=== PATIENT | male | born 1930 | race Caucasian/White ===

== ENCOUNTER 2018-12-10 00:22 | Inpatient (IN) | payer MEDICARE ==
[~2018-12-10] VITALS: Ht 177.8 cm; Wt 72.0 kg
[~2018-12-10 00:22] MED LIST: ADULT ASPIRIN R81 MG PO; ALPRAZOLAM0.25 MG PO; ATENOLOL25 MG OR; ATENOLOL50 MG OR; CIPRO500 MG OR; DIABETA2.5 MG OR; DONEPEZIL5 MG PO; FLOMAX0.4 MG OR; GLYBURIDE2.5 MG; ISOSORB MONO120 MG; ISOSORB MONO20 MG PO; LISINOPRIL2.5 MG OR; LISINOPRIL5 MG PO; OMEPRAZOLE10 MG PO; PROAIR HFA108 MCG/AC PO; SIMVASTATIN20 MG PO; SM ASPIRIN81 M1 OR; TAMSULOSIN0.4 MG PO
[2018-12-10] MEDS ORDERED: ZOLOFT50 MG PO (01:13)
[2018-12-10] MEDS ORDERED: NAMENDA10 MG PO (01:21)
[2018-12-10] MEDS ORDERED: ISOSORB MONO30 MG PO (01:22)
[2018-12-10] MEDS ORDERED: TRAMADOL HCL50 MG PO (01:23)
[2018-12-10] MEDS ORDERED: CETIRIZINE10 MG PO (01:23)
[2018-12-10] MEDS ORDERED: FOLIC ACID1 MG PO (01:24)
[2018-12-10] MEDS ORDERED: NASACORT A55 MCG/ACT (01:25)
[2018-12-10 01:29] LABS: HEMATOCRIT 37.8 % (39.0-50.0); HEMOGLOBIN 11.8 g/dl (14.0-18.0); IMMATURE GRANULOCYTES 0.4 % (0.0-5.0); MEAN CELL VOLUME 88.1 fL CALC (80.0-100.0); MEAN CORPUSCULAR HGB 27.5 pG CALC (26.0-32.0); MEAN CORPUSCULAR HGB CONC 31.2 g/L CALC (32.0-36.0); NEUT# 6.83 thou/uL (1.82-7.42); RED BLOOD COUNT 4.29 mill/uL (4.70-6.10)
[2018-12-10 01:35] LABS: ALBUMIN 3.9 g/dL (3.2-5.0); ALKALINE PHOSPHATASE 100 u/l (38-126); AMYLASE 76 u/l (30-110); ANION GAP 14 (6-22 (CALC)); BILIRUBIN, TOTAL 0.7 mg/dL (0.0-1.4); BUN 22 mg/dL (8-23); BUN/CREATININE RATIO 16 (12-20 (CALC)); CARBON DIOXIDE 25 mmol/l (22-30); CHLORIDE 106 mmol/l (95-108); CREATININE 1.4 mg/dL (0.7-1.3); GFR 48 ML/MIN (>=60 (CALC)); GFR FOR AFR.AMER. 58 ML/MIN (>=60 (CALC)); LIPASE 328 u/l (23-300); POTASSIUM 4.5 mmol/l (3.5-5.1); PROTHROMBIN TIME 10.7 SECONDS (9.0-12.5); SGOT/AST 18 u/l (19-48); SODIUM 141 mmol/l (137-146); TOTAL PROTEIN 6.8 g/dL (6.3-8.2)
[2018-12-10 01:47] LABS: MYOGLOBIN 35 ng/mL (0 - 121)
[2018-12-10 03:00] LABS: URINE BILIRUBIN - DIPSTICK NEGATIVE (NEGATIVE); URINE BLOOD DIPSTICK SMALL (NEGATIVE); URINE COLOR YELLOW; URINE GLUCOSE - DIPSTICK NEGATIVE (NEGATIVE); URINE KETONE TRACE mg/dL (NEGATIVE); URINE NITRITE - DIPSTICK NEGATIVE (Negative); URINE PH 5.5 (4.5-8.0); URINE PROTEIN - DIPSTICK TRACE mg/dL (NEG-TRACE); URINE SPECIFIC GRAVITY >=1.030; URINE UROBILINOGEN - DIPSTICK 0.2 E.U./dL (0.2)
[2018-12-10 03:04] LABS: URINE LEUK ESTERASE SMALL (NEGATIVE)
[2018-12-10 03:06] LABS: URINE BACTERIA FEW hpf; URINE MUCUS MODERATE hpf (NONE-FEW); URINE SQUAMOUS EPITHELIAL CELL FEW EPI/hpf (0-FEW); URINE WBC 50-100 WBC/hpf (0-5)
[2018-12-10 04:00] VITALS: BP 165/79
[2018-12-10 08:36] VITALS: BP 138/67
[2018-12-10 11:50] VITALS: BP 151/63
[2018-12-10 15:05] VITALS: BP 163/74
[2018-12-10 20:10] VITALS: BP 109/59
[2018-12-11 00:25] VITALS: BP 107/61
[2018-12-11 04:05] VITALS: BP 111/63
[2018-12-11 05:58] LABS: ALBUMIN 3.2 g/dL (3.2-5.0); ALKALINE PHOSPHATASE 77 u/l (38-126); AMYLASE 38 u/l (30-110); ANION GAP 18 (6-22 (CALC)); BILIRUBIN, TOTAL 1.8 mg/dL (0.0-1.4); BUN 23 mg/dL (8-23); BUN/CREATININE RATIO 18 (12-20 (CALC)); CARBON DIOXIDE 21 mmol/l (22-30); CHLORIDE 103 mmol/l (95-108); CREATININE 1.3 mg/dL (0.7-1.3); GFR 52 ML/MIN (>=60 (CALC)); GFR FOR AFR.AMER. > 60 ML/MIN (>=60 (CALC)); LIPASE 101 u/l (23-300); MAGNESIUM 1.6 mg/dL (1.6-2.3); POTASSIUM 5.1 mmol/l (3.5-5.1); SGOT/AST 20 u/l (19-48); SODIUM 137 mmol/l (137-146); TOTAL PROTEIN 5.8 g/dL (6.3-8.2)
[2018-12-11 07:05] LABS: HEMOGLOBIN 12.2 g/dl (14.0-18.0); IMMATURE GRANULOCYTES 0.4 % (0.0-5.0); MEAN CELL VOLUME 87.6 fL CALC (80.0-100.0); MEAN CORPUSCULAR HGB 28.1 pG CALC (26.0-32.0); MEAN CORPUSCULAR HGB CONC 32.1 g/L CALC (32.0-36.0); NEUT# 11.13 thou/uL (1.82-7.42); RED BLOOD COUNT 4.34 mill/uL (4.70-6.10); RED CELL DISTRI WIDTH 14.2 % (11.5-15.5)
[2018-12-11 07:55] VITALS: BP 106/50
[2018-12-11 11:27] VITALS: BP 133/59
[2018-12-11] MEDS ORDERED: [UNRECOGNIZED DRUG - OTHER] PO (15:04)
[2018-12-11 15:10] VITALS: BP 129/62
[2018-12-11] MEDS ORDERED: ASPIRIN 81 LOW81 MG PO (15:12)
[2018-12-11] MEDS ORDERED: GLYBURIDE2.5 M1 PO (15:16)
[2018-12-11] MEDS ORDERED: ROBITUSSIN30 MG/5 ML PO (15:23)
[2018-12-11 19:20] VITALS: BP 131/71
[2018-12-12] VITALS (11 sets, daily range): BP systolic 111–151; BP diastolic 48–74
[2018-12-12 05:44] LABS: PROTHROMBIN TIME 10.7 SECONDS (9.0-12.5)
[2018-12-13] VITALS (7 sets, daily range): BP systolic 135–164; BP diastolic 80–96
[2018-12-13 10:45] LABS: HEMATOCRIT 33.5 % (39.0-50.0); HEMOGLOBIN 10.9 g/dl (14.0-18.0); IMMATURE GRANULOCYTES 0.3 % (0.0-5.0); MEAN CELL VOLUME 85.7 fL CALC (80.0-100.0); MEAN CORPUSCULAR HGB 27.9 pG CALC (26.0-32.0); MEAN CORPUSCULAR HGB CONC 32.5 g/L CALC (32.0-36.0); NEUT# 5.34 thou/uL (1.82-7.42); RED BLOOD COUNT 3.91 mill/uL (4.70-6.10); RED CELL DISTRI WIDTH 14.1 % (11.5-15.5)
[2018-12-13 11:11] LABS: ANION GAP 11 (6-22 (CALC)); BUN 15 mg/dL (8-23); BUN/CREATININE RATIO 18 (12-20 (CALC)); CARBON DIOXIDE 26 mmol/l (22-30); CHLORIDE 100 mmol/l (95-108); CREATININE 0.8 mg/dL (0.7-1.3); GFR > 60 ML/MIN (>=60 (CALC)); GFR FOR AFR.AMER. > 60 ML/MIN (>=60 (CALC)); MAGNESIUM 1.8 mg/dL (1.6-2.3); POTASSIUM 4.2 mmol/l (3.5-5.1); SODIUM 133 mmol/l (137-146)
[2018-12-14] VITALS (7 sets, daily range): BP systolic 107–150; BP diastolic 72–89
[2018-12-14 05:57] LABS: ALBUMIN 3.2 g/dL (3.2-5.0); ALKALINE PHOSPHATASE 78 u/l (38-126); AMYLASE 82 u/l (30-110); ANION GAP 16 (6-22 (CALC)); BILIRUBIN, TOTAL 1.3 mg/dL (0.0-1.4); BUN 17 mg/dL (8-23); BUN/CREATININE RATIO 18 (12-20 (CALC)); CARBON DIOXIDE 25 mmol/l (22-30); CHLORIDE 97 mmol/l (95-108); CREATININE 0.9 mg/dL (0.7-1.3); GFR > 60 ML/MIN (>=60 (CALC)); GFR FOR AFR.AMER. > 60 ML/MIN (>=60 (CALC)); LIPASE 638 u/l (23-300); POTASSIUM 4.2 mmol/l (3.5-5.1); SGOT/AST 21 u/l (19-48); SODIUM 135 mmol/l (137-146); TOTAL PROTEIN 5.9 g/dL (6.3-8.2)
[2018-12-14 05:59] LABS: HEMATOCRIT 37.1 % (39.0-50.0); IMMATURE GRANULOCYTES 0.4 % (0.0-5.0); MEAN CELL VOLUME 85.9 fL CALC (80.0-100.0); MEAN CORPUSCULAR HGB 27.8 pG CALC (26.0-32.0); MEAN CORPUSCULAR HGB CONC 32.3 g/L CALC (32.0-36.0); NEUT# 7.03 thou/uL (1.82-7.42); RED BLOOD COUNT 4.32 mill/uL (4.70-6.10); RED CELL DISTRI WIDTH 13.8 % (11.5-15.5)
[2018-12-15 04:52] LABS: HEMATOCRIT 32.9 % (39.0-50.0); HEMOGLOBIN 10.8 g/dl (14.0-18.0); IMMATURE GRANULOCYTES 0.7 % (0.0-5.0); MEAN CORPUSCULAR HGB 27.9 pG CALC (26.0-32.0); MEAN CORPUSCULAR HGB CONC 32.8 g/L CALC (32.0-36.0); NEUT# 6.25 thou/uL (1.82-7.42); RED BLOOD COUNT 3.87 mill/uL (4.70-6.10); RED CELL DISTRI WIDTH 13.9 % (11.5-15.5)
[2018-12-15 04:53] VITALS: BP 149/79
[2018-12-15 05:15] LABS: ANION GAP 16 (6-22 (CALC)); BUN 22 mg/dL (8-23); BUN/CREATININE RATIO 23 (12-20 (CALC)); CARBON DIOXIDE 25 mmol/l (22-30); CHLORIDE 98 mmol/l (95-108); GFR > 60 ML/MIN (>=60 (CALC)); GFR FOR AFR.AMER. > 60 ML/MIN (>=60 (CALC)); MAGNESIUM 2.1 mg/dL (1.6-2.3); POTASSIUM 3.9 mmol/l (3.5-5.1); SODIUM 135 mmol/l (137-146)
[2018-12-15 07:39] VITALS: BP 99/62
[2018-12-15 11:28] VITALS: BP 115/69
[2018-12-15 15:18] VITALS: BP 141/81
[2018-12-15 19:05] VITALS: BP 161/89
[2018-12-15 23:51] VITALS: BP 139/80
[2018-12-16 04:29] VITALS: BP 170/92
[2018-12-16 05:11] LABS: HEMATOCRIT 34.5 % (39.0-50.0); HEMOGLOBIN 11.4 g/dl (14.0-18.0)
[2018-12-16 08:24] VITALS: BP 149/87
[2018-12-16 15:33] VITALS: BP 105/68
[2018-12-16 19:00] VITALS: BP 141/86
[2018-12-16 19:29] VITALS: BP 159/90
[2018-12-17 04:30] VITALS: BP 140/88
[2018-12-17 05:37] LABS: HEMATOCRIT 35.8 % (39.0-50.0); HEMOGLOBIN 11.7 g/dl (14.0-18.0); IMMATURE GRANULOCYTES 0.5 % (0.0-5.0); MEAN CELL VOLUME 84.8 fL CALC (80.0-100.0); MEAN CORPUSCULAR HGB 27.7 pG CALC (26.0-32.0); MEAN CORPUSCULAR HGB CONC 32.7 g/L CALC (32.0-36.0); NEUT# 4.02 thou/uL (1.82-7.42); RED BLOOD COUNT 4.22 mill/uL (4.70-6.10); RED CELL DISTRI WIDTH 13.7 % (11.5-15.5)
[2018-12-17 06:09] LABS: ALBUMIN 3.4 g/dL (3.2-5.0); ALKALINE PHOSPHATASE 75 u/l (38-126); AMYLASE 200 u/l (30-110); ANION GAP 19 (6-22 (CALC)); BILIRUBIN, TOTAL 1.3 mg/dL (0.0-1.4); BUN 24 mg/dL (8-23); BUN/CREATININE RATIO 20 (12-20 (CALC)); CARBON DIOXIDE 24 mmol/l (22-30); CHLORIDE 97 mmol/l (95-108); CREATININE 1.2 mg/dL (0.7-1.3); GFR 57 ML/MIN (>=60 (CALC)); GFR FOR AFR.AMER. > 60 ML/MIN (>=60 (CALC)); MAGNESIUM 2.2 mg/dL (1.6-2.3); SGOT/AST 25 u/l (19-48); SODIUM 136 mmol/l (137-146); TOTAL PROTEIN 5.9 g/dL (6.3-8.2)
[2018-12-17 06:21] LABS: LIPASE 2481 u/l (23-300)
[2018-12-17 07:20] VITALS: BP 138/80
[2018-12-17 14:40] VITALS: BP 121/70
== END 2018-12-17 15:10 | DRG 981 ==
LOC: ED 00:22 → ED-I 00:50 → ED 03:21 → MS2 03:22
PROVIDERS: Emergency Medicine; Nurse Practitioner Family; ADMIT Internal Medicine; ATTEND Internal Medicine Nephrology
PROC: 0T9B70Z Drainage of Bladder with Drainage Device, Via Natural or Artificial Opening (ICD-10-PCS; principal; 2018-12-11)
PROC: 0TCB8ZZ Extirpation of Matter from Bladder, Via Natural or Artificial Opening Endoscopic (ICD-10-PCS; 2018-12-11)
PROC: 0W3R8ZZ Control Bleeding in Genitourinary Tract, Via Natural or Artificial Opening Endoscopic (ICD-10-PCS; 2018-12-12)
DX: K80.20 Calculus of gallbladder without cholecystitis without obstruction (principal); K85.10 Biliary acute pancreatitis without necrosis or infection; N39.0 Urinary tract infection, site not specified; N21.0 Calculus in bladder; N35.912 Unspecified bulbous urethral stricture, male; N42.1 Congestion and hemorrhage of prostate; E11.9 Type 2 diabetes mellitus without complications; I10 Essential (primary) hypertension; J44.9 Chronic obstructive pulmonary disease, unspecified; I25.10 Atherosclerotic heart disease of native coronary artery without angina pectoris; F03.90 Unspecified dementia, unspecified severity, without behavioral disturbance, psychotic disturbance, mood disturbance, and anxiety; E78.5 Hyperlipidemia, unspecified; N40.0 Benign prostatic hyperplasia without lower urinary tract symptoms; K21.9 Gastro-esophageal reflux disease without esophagitis; B96.5 Pseudomonas (aeruginosa) (mallei) (pseudomallei) as the cause of diseases classified elsewhere; Z95.1 Presence of aortocoronary bypass graft; Z85.51 Personal history of malignant neoplasm of bladder; Z95.0 Presence of cardiac pacemaker
CPT/HCPCS: J1650; J1956; J2060; S0164

== ENCOUNTER → 2019-01-14 | Outpatient (REF) | payer MEDICARE ==
[~2019-01-14] MED LIST changes: +ASPIRIN 81 LOW81 MG PO; +CETIRIZINE10 MG PO; +CONSTULOSE10 GM/15 M PO; +CORRECTOL100 MG PO; +DOXYCYC MONO100 M2 PO; +FOLIC ACID1 MG PO; +GLYBURIDE2.5 M1 PO; +ISOSORB MONO30 MG PO; +ISOSORB MONO60 M1 PO; +MIRTAZAPINE15 MG PO; +NAMENDA10 MG PO; +NASACORT A55 MCG/ACT; +PANTOPRAZOLE SO40 MG PO; +PROTONIX40 M2 PO; +QUETIAPINE FUMA25 MG PO; +ROBITUSSIN30 MG/5 ML PO; +TAMSULOSIN HCL0.4 MG PO; +TRAMADOL HCL50 MG PO; +ZOLOFT50 MG PO; +[UNRECOGNIZED DRUG - OTHER] PO
[2019-01-14 15:56] LABS: URINE BLOOD DIPSTICK MODERATE (NEGATIVE); URINE COLOR YELLOW; URINE GLUCOSE - DIPSTICK NEGATIVE (NEGATIVE); URINE KETONE 15 mg/dL (NEGATIVE); URINE LEUK ESTERASE MODERATE (Negative); URINE NITRITE - DIPSTICK NEGATIVE (Negative); URINE PROTEIN - DIPSTICK 100 mg/dL (NEG-TRACE); URINE UROBILINOGEN - DIPSTICK 0.2 E.U./dL (0.2)
[2019-01-14 15:57] LABS: URINE BILIRUBIN - DIPSTICK NEGATIVE (NEGATIVE); URINE CLARITY CLOUDY
[2019-01-14 16:12] LABS: URINE WBC TNTC WBC/hpf (0-5)
== END | disposition home or self-care (01) ==
LOC: LABSPEC 15:11
DX: R53.1 Weakness (principal); R23.1 Pallor; B96.20 Unspecified Escherichia coli [E. coli] as the cause of diseases classified elsewhere

== ENCOUNTER 2019-01-15 10:16 | Inpatient (IN) | payer MEDICARE ==
[~2019-01-15] VITALS: Ht 177.8 cm; Wt 58.0 kg
[~2019-01-15 10:16] MED LIST changes: -CONSTULOSE10 GM/15 M PO; -CORRECTOL100 MG PO; -DOXYCYC MONO100 M2 PO; -ISOSORB MONO60 M1 PO; -MIRTAZAPINE15 MG PO; -PANTOPRAZOLE SO40 MG PO; -PROTONIX40 M2 PO; -QUETIAPINE FUMA25 MG PO; -TAMSULOSIN HCL0.4 MG PO
[2019-01-15 11:07] LABS: IMMATURE GRANULOCYTES 0.3 % (0.0-5.0); MEAN CELL VOLUME 88.4 fL CALC (80.0-100.0); MEAN CORPUSCULAR HGB 27.3 pG CALC (26.0-32.0); MEAN CORPUSCULAR HGB CONC 30.9 g/L CALC (32.0-36.0); NEUT# 3.84 thou/uL (1.82-7.42); RED BLOOD COUNT 3.37 mill/uL (4.70-6.10); RED CELL DISTRI WIDTH 16.4 % (11.5-15.5)
[2019-01-15 11:08] LABS: HEMATOCRIT 29.8 % (39.0-50.0); HEMOGLOBIN 9.2 g/dl (14.0-18.0)
[2019-01-15 11:24] LABS: ALBUMIN 3.2 g/dL (3.2-5.0); ALKALINE PHOSPHATASE 75 u/l (38-126); ANION GAP 13 (6-22 (CALC)); BUN 23 mg/dL (8-23); BUN/CREATININE RATIO 23 (12-20 (CALC)); CARBON DIOXIDE 26 mmol/l (22-30); CHLORIDE 102 mmol/l (95-108); GFR > 60 ML/MIN (>=60 (CALC)); GFR FOR AFR.AMER. > 60 ML/MIN (>=60 (CALC)); POTASSIUM 3.4 mmol/l (3.5-5.1); SGOT/AST 37 u/l (19-48); SODIUM 138 mmol/l (137-146); TOTAL PROTEIN 6.4 g/dL (6.3-8.2)
[2019-01-15 11:27] LABS: URINE BLOOD DIPSTICK MODERATE (NEGATIVE); URINE COLOR YELLOW; URINE GLUCOSE - DIPSTICK NEGATIVE (NEGATIVE); URINE KETONE 15 mg/dL (NEGATIVE); URINE NITRITE - DIPSTICK NEGATIVE (Negative); URINE PROTEIN - DIPSTICK 100 mg/dL (NEG-TRACE); URINE UROBILINOGEN - DIPSTICK 0.2 E.U./dL (0.2)
[2019-01-15 11:28] LABS: URINE BILIRUBIN - DIPSTICK SMALL (NEGATIVE); URINE LEUK ESTERASE MODERATE (NEGATIVE)
[2019-01-15] MEDS ORDERED: PROTONIX40 M2 PO (11:42)
[2019-01-15 11:44] LABS: URINE RBC TNTC RBC/hpf (0-5); URINE WBC TNTC WBC/hpf (0-5)
[2019-01-15 11:45] LABS: URINE BACTERIA MODERATE hpf; URINE SQUAMOUS EPITHELIAL CELL FEW EPI/hpf (0-FEW)
[2019-01-15 15:45] VITALS: BP 114/63
[2019-01-15 19:00] VITALS: BP 116/70
[2019-01-16 04:53] VITALS: BP 121/55
[2019-01-16 05:43] LABS: HEMATOCRIT 27.7 % (39.0-50.0); HEMOGLOBIN 8.4 g/dl (14.0-18.0); IMMATURE GRANULOCYTES 0.2 % (0.0-5.0); MEAN CELL VOLUME 88.5 fL CALC (80.0-100.0); MEAN CORPUSCULAR HGB 26.8 pG CALC (26.0-32.0); MEAN CORPUSCULAR HGB CONC 30.3 g/L CALC (32.0-36.0); NEUT# 2.38 thou/uL (1.82-7.42); RED BLOOD COUNT 3.13 mill/uL (4.70-6.10); RED CELL DISTRI WIDTH 16.4 % (11.5-15.5)
[2019-01-16 06:03] LABS: ALBUMIN 2.7 g/dL (3.2-5.0); ALKALINE PHOSPHATASE 69 u/l (38-126); AMYLASE 40 u/l (30-110); ANION GAP 12 (6-22 (CALC)); BILIRUBIN, TOTAL 0.9 mg/dL (0.0-1.4); BUN 18 mg/dL (8-23); BUN/CREATININE RATIO 20 (12-20 (CALC)); CARBON DIOXIDE 25 mmol/l (22-30); CHLORIDE 106 mmol/l (95-108); CREATININE 0.9 mg/dL (0.7-1.3); GFR > 60 ML/MIN (>=60 (CALC)); GFR FOR AFR.AMER. > 60 ML/MIN (>=60 (CALC)); LIPASE 350 u/l (23-300); POTASSIUM 3.9 mmol/l (3.5-5.1); SGOT/AST 38 u/l (19-48); SODIUM 138 mmol/l (137-146); TOTAL PROTEIN 5.4 g/dL (6.3-8.2)
[2019-01-16 06:04] LABS: MAGNESIUM 1.6 mg/dL (1.6-2.3)
[2019-01-16 08:51] VITALS: BP 114/64
[2019-01-16] MEDS ORDERED: PANTOPRAZOLE SO40 MG PO (10:10)
[2019-01-16] MEDS ORDERED: QUETIAPINE FUMA25 MG PO (10:11)
[2019-01-16] MEDS ORDERED: LISINOPRIL5 MG PO (10:13)
[2019-01-16] MEDS ORDERED: ISOSORB MONO60 M1 PO (10:14)
[2019-01-16] MEDS ORDERED: TAMSULOSIN HCL0.4 MG PO (10:17)
[2019-01-16] MEDS ORDERED: CORRECTOL100 MG PO (10:17)
[2019-01-16] MEDS ORDERED: TRAMADOL HCL50 MG PO (10:21)
[2019-01-16] MEDS ORDERED: CONSTULOSE10 GM/15 M PO (10:21)
[2019-01-16 16:00] VITALS: BP 142/74
[2019-01-16 19:10] VITALS: BP 129/70
[2019-01-17 04:43] VITALS: BP 149/78
[2019-01-17 07:39] LABS: HEMATOCRIT 32.4 % (39.0-50.0); IMMATURE GRANULOCYTES 0.4 % (0.0-5.0); MEAN CELL VOLUME 87.3 fL CALC (80.0-100.0); MEAN CORPUSCULAR HGB CONC 30.9 g/L CALC (32.0-36.0); NEUT# 2.75 thou/uL (1.82-7.42); RED BLOOD COUNT 3.71 mill/uL (4.70-6.10); RED CELL DISTRI WIDTH 16.2 % (11.5-15.5)
[2019-01-17 07:48] LABS: ALKALINE PHOSPHATASE 84 u/l (38-126); AMYLASE 43 u/l (30-110); ANION GAP 13 (6-22 (CALC)); BILIRUBIN, TOTAL 1.2 mg/dL (0.0-1.4); BUN 9 mg/dL (8-23); BUN/CREATININE RATIO 10 (12-20 (CALC)); CARBON DIOXIDE 26 mmol/l (22-30); CHLORIDE 104 mmol/l (95-108); CREATININE 0.9 mg/dL (0.7-1.3); GFR > 60 ML/MIN (>=60 (CALC)); GFR FOR AFR.AMER. > 60 ML/MIN (>=60 (CALC)); LIPASE 304 u/l (23-300); MAGNESIUM 1.5 mg/dL (1.6-2.3); POTASSIUM 4.4 mmol/l (3.5-5.1); SGOT/AST 38 u/l (19-48); SODIUM 138 mmol/l (137-146); TOTAL PROTEIN 6.1 g/dL (6.3-8.2)
[2019-01-17 08:00] VITALS: BP 137/76
[2019-01-17 16:30] VITALS: BP 140/69
[2019-01-17 19:00] VITALS: BP 121/78
[2019-01-18 04:10] VITALS: BP 127/71
[2019-01-18 05:05] LABS: ANION GAP 13 (6-22 (CALC)); BUN 7 mg/dL (8-23); BUN/CREATININE RATIO 8 (12-20 (CALC)); CARBON DIOXIDE 26 mmol/l (22-30); CHLORIDE 103 mmol/l (95-108); CREATININE 0.9 mg/dL (0.7-1.3); GFR > 60 ML/MIN (>=60 (CALC)); GFR FOR AFR.AMER. > 60 ML/MIN (>=60 (CALC)); MAGNESIUM 1.8 mg/dL (1.6-2.3); SODIUM 136 mmol/l (137-146)
[2019-01-18 05:12] LABS: HEMATOCRIT 33.9 % (39.0-50.0); HEMOGLOBIN 10.5 g/dl (14.0-18.0); MEAN CELL VOLUME 87.8 fL CALC (80.0-100.0); MEAN CORPUSCULAR HGB 27.2 pG CALC (26.0-32.0); RED BLOOD COUNT 3.86 mill/uL (4.70-6.10); RED CELL DISTRI WIDTH 16.5 % (11.5-15.5)
[2019-01-18 08:00] VITALS: BP 116/31
[2019-01-18 15:45] VITALS: BP 112/77
[2019-01-18 20:00] VITALS: BP 110/60
[2019-01-19] VITALS (11 sets, daily range): BP systolic 123–159; BP diastolic 55–87
[2019-01-19 05:42] LABS: HEMATOCRIT 30.6 % (39.0-50.0); HEMOGLOBIN 9.4 g/dl (14.0-18.0); IMMATURE GRANULOCYTES 0.9 % (0.0-5.0); MEAN CELL VOLUME 88.4 fL CALC (80.0-100.0); MEAN CORPUSCULAR HGB 27.2 pG CALC (26.0-32.0); MEAN CORPUSCULAR HGB CONC 30.7 g/L CALC (32.0-36.0); NEUT# 2.47 thou/uL (1.82-7.42); RED BLOOD COUNT 3.46 mill/uL (4.70-6.10); RED CELL DISTRI WIDTH 16.8 % (11.5-15.5)
[2019-01-19 05:54] LABS: ALBUMIN 2.8 g/dL (3.2-5.0); ALKALINE PHOSPHATASE 80 u/l (38-126); ANION GAP 14 (6-22 (CALC)); BILIRUBIN, TOTAL 0.9 mg/dL (0.0-1.4); BUN 8 mg/dL (8-23); BUN/CREATININE RATIO 9 (12-20 (CALC)); CARBON DIOXIDE 26 mmol/l (22-30); CHLORIDE 101 mmol/l (95-108); CREATININE 0.9 mg/dL (0.7-1.3); GFR > 60 ML/MIN (>=60 (CALC)); GFR FOR AFR.AMER. > 60 ML/MIN (>=60 (CALC)); POTASSIUM 4.7 mmol/l (3.5-5.1); SGOT/AST 31 u/l (19-48); SODIUM 136 mmol/l (137-146); TOTAL PROTEIN 5.7 g/dL (6.3-8.2)
[2019-01-20 05:31] VITALS: BP 168/80
[2019-01-20 08:05] VITALS: BP 128/54
[2019-01-20 11:05] VITALS: BP 135/64
[2019-01-20 14:30] VITALS: BP 128/67
[2019-01-20 19:40] VITALS: BP 115/64
[2019-01-21 04:10] VITALS: BP 131/65
[2019-01-21 06:19] LABS: HEMATOCRIT 29.4 % (39.0-50.0); HEMOGLOBIN 9.2 g/dl (14.0-18.0); IMMATURE GRANULOCYTES 0.5 % (0.0-5.0); MEAN CELL VOLUME 87.2 fL CALC (80.0-100.0); MEAN CORPUSCULAR HGB 27.3 pG CALC (26.0-32.0); MEAN CORPUSCULAR HGB CONC 31.3 g/L CALC (32.0-36.0); NEUT# 3.78 thou/uL (1.82-7.42); RED BLOOD COUNT 3.37 mill/uL (4.70-6.10)
[2019-01-21 06:31] LABS: ALBUMIN 2.9 g/dL (3.2-5.0); ALKALINE PHOSPHATASE 89 u/l (38-126); AMYLASE < 30 u/l (30-110); ANION GAP 15 (6-22 (CALC)); BUN 12 mg/dL (8-23); BUN/CREATININE RATIO 13 (12-20 (CALC)); CARBON DIOXIDE 29 mmol/l (22-30); CHLORIDE 97 mmol/l (95-108); CREATININE 0.9 mg/dL (0.7-1.3); GFR > 60 ML/MIN (>=60 (CALC)); GFR FOR AFR.AMER. > 60 ML/MIN (>=60 (CALC)); LIPASE 176 u/l (23-300); MAGNESIUM 1.5 mg/dL (1.6-2.3); POTASSIUM 4.1 mmol/l (3.5-5.1); SGOT/AST 29 u/l (19-48); SODIUM 136 mmol/l (137-146); TOTAL PROTEIN 5.7 g/dL (6.3-8.2)
[2019-01-21 07:50] VITALS: BP 111/57
[2019-01-21 16:10] VITALS: BP 113/62
[2019-01-21 19:25] VITALS: BP 117/75
[2019-01-22 04:13] VITALS: BP 120/71
[2019-01-22 07:48] VITALS: BP 107/66
[2019-01-22 15:31] VITALS: BP 98/51
[2019-01-22 16:38] VITALS: BP 110/68
[2019-01-22 19:00] VITALS: BP 129/73
[2019-01-23 10:14] VITALS: BP 105/60
[2019-01-23 15:45] VITALS: BP 105/60
[2019-01-23 19:08] VITALS: BP 135/85
[2019-01-24 03:50] VITALS: BP 99/62
[2019-01-24 09:34] VITALS: BP 123/60
[2019-01-24 15:57] VITALS: BP 110/62
[2019-01-24 19:12] VITALS: BP 93/64
[2019-01-25 04:05] VITALS: BP 134/79
[2019-01-25 09:03] VITALS: BP 126/75
[2019-01-25 15:25] VITALS: BP 112/63
[2019-01-25 19:32] VITALS: BP 101/60
[2019-01-26 04:45] VITALS: BP 108/82
[2019-01-26 05:24] LABS: HEMATOCRIT 25.2 % (39.0-50.0); HEMOGLOBIN 7.6 g/dl (14.0-18.0); IMMATURE GRANULOCYTES 0.4 % (0.0-5.0); MEAN CORPUSCULAR HGB 27.7 pG CALC (26.0-32.0); MEAN CORPUSCULAR HGB CONC 30.2 g/L CALC (32.0-36.0); NEUT# 1.96 thou/uL (1.82-7.42); RED BLOOD COUNT 2.74 mill/uL (4.70-6.10); RED CELL DISTRI WIDTH 17.8 % (11.5-15.5)
[2019-01-26 05:49] LABS: ALBUMIN 2.8 g/dL (3.2-5.0); ALKALINE PHOSPHATASE 80 u/l (38-126); ANION GAP 13 (6-22 (CALC)); BUN 14 mg/dL (8-23); BUN/CREATININE RATIO 17 (12-20 (CALC)); CARBON DIOXIDE 30 mmol/l (22-30); CHLORIDE 99 mmol/l (95-108); CREATININE 0.9 mg/dL (0.7-1.3); GFR > 60 ML/MIN (>=60 (CALC)); GFR FOR AFR.AMER. > 60 ML/MIN (>=60 (CALC)); MAGNESIUM 1.7 mg/dL (1.6-2.3); POTASSIUM 4.5 mmol/l (3.5-5.1); SGOT/AST 34 u/l (19-48); SODIUM 137 mmol/l (137-146); TOTAL PROTEIN 5.8 g/dL (6.3-8.2)
[2019-01-26 08:05] VITALS: BP 104/65
[2019-01-26] MEDS ORDERED: MIRTAZAPINE15 MG PO (13:55)
[2019-01-26] MEDS ORDERED: DOXYCYC MONO100 M2 PO (13:55)
== END 2019-01-26 15:29 | DRG 871 ==
LOC: ED 10:16 → ED-I 14:16 → ED 14:27 → MS2 14:28
PROVIDERS: Emergency Medicine; Nurse Practitioner Family; ADMIT Internal Medicine Nephrology; ATTEND Internal Medicine Nephrology
PROC: 0T9B70Z Drainage of Bladder with Drainage Device, Via Natural or Artificial Opening (ICD-10-PCS; 2019-01-16)
PROC: 0DH63UZ Insertion of Feeding Device into Stomach, Percutaneous Approach (ICD-10-PCS; principal; 2019-01-19)
DX: A41.1 Sepsis due to other specified staphylococcus (principal); G93.41 Metabolic encephalopathy; T81.41XA Infection following a procedure, superficial incisional surgical site, initial encounter; T81.31XA Disruption of external operation (surgical) wound, not elsewhere classified, initial encounter; Z68.1 Body mass index [BMI] 19.9 or less, adult; E46 Unspecified protein-calorie malnutrition; N39.0 Urinary tract infection, site not specified; R65.20 Severe sepsis without septic shock; I10 Essential (primary) hypertension; E11.9 Type 2 diabetes mellitus without complications; F03.90 Unspecified dementia, unspecified severity, without behavioral disturbance, psychotic disturbance, mood disturbance, and anxiety; E78.5 Hyperlipidemia, unspecified; J44.9 Chronic obstructive pulmonary disease, unspecified; I25.10 Atherosclerotic heart disease of native coronary artery without angina pectoris; N40.1 Benign prostatic hyperplasia with lower urinary tract symptoms; R33.8 Other retention of urine; R62.7 Adult failure to thrive; R47.1 Dysarthria and anarthria; K29.70 Gastritis, unspecified, without bleeding; K29.80 Duodenitis without bleeding; K21.9 Gastro-esophageal reflux disease without esophagitis; B96.20 Unspecified Escherichia coli [E. coli] as the cause of diseases classified elsewhere; Y83.6 Removal of other organ (partial) (total) as the cause of abnormal reaction of the patient, or of later complication, without mention of misadventure at the time of the procedure; Z87.891 Personal history of nicotine dependence; Z95.1 Presence of aortocoronary bypass graft; Z85.51 Personal history of malignant neoplasm of bladder; R53.1 Weakness; R23.1 Pallor
CPT/HCPCS: G0378; J2060; J3370; J3475

== ENCOUNTER 2020-02-15 | Emergency (ER) | payer MEDICARE ==
[~2020-02-15] MED LIST changes: +CONSTULOSE10 GM/15 M PO; +CORRECTOL100 MG PO; +DOXYCYC MONO100 M2 PO; +ISOSORB MONO60 M1 PO; +MIRTAZAPINE15 MG PO; +PANTOPRAZOLE SO40 MG PO; +PROTONIX40 M2 PO; +QUETIAPINE FUMA25 MG PO; +TAMSULOSIN HCL0.4 MG PO
[2020-02-15 08:50] LABS: IMMATURE GRANULOCYTES 0.2 % (0.0-5.0); MEAN CELL VOLUME 93.8 fL CALC (80.0-100.0); MEAN CORPUSCULAR HGB 27.6 pG CALC (26.0-32.0); MEAN CORPUSCULAR HGB CONC 29.4 g/L CALC (32.0-36.0); NEUT# 3.83 thou/uL (1.82-7.42); RED BLOOD COUNT 3.52 mill/uL (4.70-6.10); RED CELL DISTRI WIDTH 14.6 % (11.5-15.5)
[2020-02-15 08:51] LABS: HEMOGLOBIN 9.7 g/dl (14.0-18.0)
[2020-02-15 09:06] LABS: BUN 20 mg/dL (8-23); BUN/CREATININE RATIO 16 (12-20 (CALC)); CHLORIDE 109 mmol/l (95-108); CREATININE 1.3 mg/dL (0.7-1.3); GFR 52 ML/MIN (>=60 (CALC)); GFR FOR AFR.AMER. > 60 ML/MIN (>=60 (CALC)); SODIUM 137 mmol/l (137-146)
[2020-02-15 09:09] LABS: ANION GAP 10 (6-22 (CALC)); CARBON DIOXIDE 23 mmol/l (22-30)
== END 2020-02-15 09:42 | disposition home or self-care (01) ==
PROVIDERS: Family Medicine
DX: R60.0 Localized edema (principal); E11.9 Type 2 diabetes mellitus without complications; I10 Essential (primary) hypertension; F03.90 Unspecified dementia, unspecified severity, without behavioral disturbance, psychotic disturbance, mood disturbance, and anxiety; J44.9 Chronic obstructive pulmonary disease, unspecified; Z95.1 Presence of aortocoronary bypass graft

== ENCOUNTER 2020-09-01 14:24 | Observation (INO) | payer MEDICARE ==
[~2020-09-01] VITALS: Ht 177.8 cm; Wt 74.0 kg
--- NOTE | 2020-09-01 14:24 | NUR ---
PT TO ROOM VIA EMS STRETCHER FOR BEDSIDE TRIAGE
--- NOTE | 2020-09-01 14:30 | NUR ---
PT RESTING COMPLAINED OF CHEST PAIN THAT RESOLVED PRIOR TO ARRIVAL.
[2020-09-01 15:08] LABS: HEMATOCRIT 34.6 % (39.0-50.0); HEMOGLOBIN 10.5 g/dl (14.0-18.0); IMMATURE GRANULOCYTES 0.2 % (0.0-5.0); MEAN CELL VOLUME 93.3 fL CALC (80.0-100.0); MEAN CORPUSCULAR HGB 28.3 pG CALC (26.0-32.0); MEAN CORPUSCULAR HGB CONC 30.3 g/dL CAL (32.0-36.0); NEUT# 2.93 thou/uL (1.82-7.42); RED BLOOD COUNT 3.71 mill/uL (4.70-6.10); RED CELL DISTRI WIDTH 14.3 % (11.5-15.5)
[2020-09-01 15:27] LABS: ANION GAP 12 (6-22 (CALC)); BUN 19 mg/dL (8-23); BUN/CREATININE RATIO 15 (12-20 (CALC)); CARBON DIOXIDE 27 mmol/l (22-30); CHLORIDE 103 mmol/l (95-108); CREATININE 1.3 mg/dL (0.7-1.3); GFR 52 ML/MIN (>=60 (CALC)); GFR FOR AFR.AMER. > 60 ML/MIN (>=60 (CALC)); POTASSIUM 4.4 mmol/l (3.5-5.1); PROTHROMBIN TIME 10.2 SECONDS (9.0-12.5); SODIUM 137 mmol/l (137-146)
--- NOTE | 2020-09-01 15:30 | NUR ---
PT RESTING CONTINUES TO DENY HCEST PAIN AWARE OF POTNETIAL ADMISSION
--- NOTE | 2020-09-01 16:26 | NUR ---
PT AWARE OF PLANNED ADMISSION. CALL DE LA GARZA WITHIN REACH
--- NOTE | 2020-09-01 17:01 | NUR ---
REPORT CALLED TO ARLETTE
--- NOTE | 2020-09-01 17:27 | NUR ---
PT REZA[ORTED TO MED SURG ON TELE ALL BELONGINGS WITH PT
--- NOTE | 2020-09-01 17:30 | NUR ---
PT ARRIVED TO MED/SURG ROOM 280 IN STABLE CONDITION VIA STRETCHER ACCOMPANIED BY LINH LANE;PT ASSISTED TO BEDSIDE WITH X4 PERSON ASSIST;PT A&O TO SELF, VERY POOR HISTORIAN;ORIENTED PT TO ROOM AND CALL LIGHT SYSTEM;PT DENIES ANY CURRENT CHEST PAIN OR PRESSURE, PT DENIES EVERY HAVING CHEST PAIN;PAIN SCALE AND REPORTING EDUCATED;VS AND WT OBTAINED BY ANYA CORTEZ;ASSESSMENT COMPLETED;RESPIRATIONS EVEN AND UNLABORED ON RA,CLEAR LUNG SOUNDS;ABDOMEN SOFT ON PALPATION AND ACTIVE IN ALL 4 QUADRANTS, UNKNOWN LAST BM;WEAK PEDAL PULSES;SKIN INTACT;TELE MONITORING IN PLACE;EMS #22G TO LEFT HAND FLUSHED AND PATENT,NS STARTED PER ORDER;ACCUCHECK 156;PT DENIES ANY ADDITIONAL NEEDS AT THIS TIME AND IS ENCOURAGED TO CALL FOR ASSISTANCE IF NEEDED;FALL PRECAUTIONS IN PLACE WITH BED IN THE LOWEST POSITION AND BED ALARM ON FOR SAFETY;CALL LIGHT IN REACH;WILL CONTINUE TO MONITOR
[2020-09-01 17:35] VITALS: BP 162/74
[2020-09-01 19:25] VITALS: BP 146/66
[2020-09-01 19:40] VITALS: BP 165/72
--- NOTE | 2020-09-01 19:55 | NUR ---
REPORT FROM ER ENGINEERING EQUIPMENT OPERATOR THAT PT HAD 30 BEAT RUN OF VTACH. PT NOTED SITTING UP ON SIDE OF BED, PT DENIES ANY SYMPTOMS AT THIS TIME. VS 167/80, 60, 18, 96%RA. NO CHANGE IN COGNITION PT REMAINS CONFUSED. COLLAR SHAPER OPERATOR PHYSICIAN NOTIFIED. ORDERS FOR STAT MAG LEVEL. WILL CONTINUE TO MONITOR.
--- NOTE | 2020-09-01 20:49 | NUR ---
PT SITTING ON SIDE OF BED BEING UNRULY CALLING STAFF STUPID AND REFUSING TO TAKE MEDICATION AT THIS TIME. BED ALARM ON AND CALL LIGHT WITHIN REACH. WILL CONTINUE TO MONITOR.
--- NOTE | 2020-09-01 21:19 | NUR ---
KOFI RN IN ROOM WITH PT, AFTER LONG CONVERSATION AND REASSURING PT TOOK MEDICATIONS. PT REFUSED STOOL SOFTNER AND LOVENOX INJECTION AT THIS TIME. ATTEMPTED TO REORIENTED PT SEVERAL TIMES. PT DENIES EVER HAVING ANY CHEST PAIN. PT CONTINUES TO BE CONFUSED. PT RESTING IN BED, COMPLYING WITH STAFF AT THIS TIME. CALL LIGHT WITHIN REACH AND BED ALARM FOR SAFETY.
--- NOTE | 2020-09-01 23:00 | NUR ---
PT PULLED IV SITE OUT ATTEMPTING TO GET OOB. CATH INTACT. ASSISTED PT TO BATHROOM PT VOIDED WITHOUT DIFFICULTY. LINENS CHANGED AT THIS TIME. PT PLEASANT, COOPERATING WITH STAFF. NEW IV SITE OBTAINED IN LFA X1 ATTEMPT. PT TOLERATED WELL. CALL LIGHT WITHIN REACH AND BED ALARM ON FOR SAFETY. WILL CONTINUE TO MONITOR.
[2020-09-02 00:12] VITALS: BP 162/76
--- NOTE | 2020-09-02 02:07 | NUR ---
BED ALARM SOUNDING. PT ATTEMPTING TO GET OOB. ASSISTED PT X1 ASSIST TO BATHROOM AT THIS TIME. PT REMAINS CALM AND COOPERATIVE WITH STAFF. PT VOIDED WITHOUT DIFFICULTY. ASSISTED BACK INTO BED. PT DENIES ANY PAIN OR DISCOMFORT. CALL LIGHT WITHIN REACH AND BED ALARM ON FOR SAFETY. WILL CONTINUE TO MONITOR.
--- NOTE | 2020-09-02 02:12 | NUR ---
PT ALLOWS STAFF TO REPLACE PIT CRANE OPERATOR AT THIS TIME. ER STAFF NOTIFIED.
[2020-09-02 04:45] VITALS: BP 135/69
[2020-09-02 06:31] LABS: HEMATOCRIT 36.8 % (39.0-50.0); HEMOGLOBIN 11.3 g/dl (14.0-18.0); IMMATURE GRANULOCYTES 0.2 % (0.0-5.0); MEAN CELL VOLUME 91.8 fL CALC (80.0-100.0); MEAN CORPUSCULAR HGB 28.2 pG CALC (26.0-32.0); MEAN CORPUSCULAR HGB CONC 30.7 g/dL CAL (32.0-36.0); NEUT# 2.2 thou/uL (1.82-7.42); RED BLOOD COUNT 4.01 mill/uL (4.70-6.10); RED CELL DISTRI WIDTH 14.1 % (11.5-15.5)
[2020-09-02 06:51] LABS: ALKALINE PHOSPHATASE 95 u/l (38-126); ANION GAP 12 (6-22 (CALC)); BILIRUBIN, TOTAL 0.8 mg/dL (0.0-1.4); BUN 17 mg/dL (8-23); BUN/CREATININE RATIO 15 (12-20 (CALC)); CALCULATED LDLCHOLESTEROL 87 mg/dL (62-129 (CALC)); CARBON DIOXIDE 25 mmol/l (22-30); CHLORIDE 107 mmol/l (95-108); CHOLESTEROL HDL RATIO 4.2 (<4.4 (CALC)); CREATININE 1.2 mg/dL (0.7-1.3); GFR 57 ML/MIN (>=60 (CALC)); GFR FOR AFR.AMER. > 60 ML/MIN (>=60 (CALC)); HDL CHOLESTEROL 36 mg/dL (>=40); MAGNESIUM 2.1 mg/dL (1.6-2.3); POTASSIUM 4.5 mmol/l (3.5-5.1); SGOT/AST 17 u/l (19-48); SODIUM 139 mmol/l (137-146); TOTAL CHOLESTEROL 152 mg/dl (0-199); TOTAL PROTEIN 6.1 g/dL (6.3-8.2); TOTAL TRIGLYCERIDES 144 mg/dl (30-149); VLDL CHOLESTROL 29 mg/dl (0-38 (CALC))
--- NOTE | 2020-09-02 06:55 | NUR ---
PT note Patient is screened fro rehab intervention. It appears he was admitted with chest pain. NO functional deficits noted on admission. No needs for PT identfied at this time
[2020-09-02 06:58] LABS: ALBUMIN 3.5 g/dL (3.2-5.0)
--- NOTE | 2020-09-02 07:03 | NUR ---
REPORT RECEIVED FROM ANNABELLA BURT. PT RESTING IN BED WITH EYES CLOSED. NO S/S OF DISTRESS AT THIS TIME. BED ALARM ACTIVE FOR PT SAFETY. WILL CONTINUE TO MONITOR.
[2020-09-02 07:13] VITALS: BP 148/75
--- NOTE | 2020-09-02 07:13 | NUR ---
PT RESTING IN BED. VS OBTAINED AND ASSESSMENT COMPLETED. PT ALERT AND ORIENTED WITH FORGETFULNESS. RESPIRATIONS EVEN AND UNLABORED ON RA. LUNGS SOUND DIMINISHED, WHEEZES NOTED RIGHT UPPER LUNG. PEDAL PULSES ARE WEAK. PT DENIES ANY PAIN OR DISCOMFORT AT THIS TIME. PT ASKING "WHERE ARE MY CLOTHES I'M READY TO GO" PT REORIENTED, WOOD TURNING LATHE OPERATOR ASKED PT IF HE COULD WAIT UNTIL THE DOCTOR COMES IN, PT AGREED TO WAIT. BED ALARM ACTIVE FOR PT SAFETY. WILL CONTINUE TO MONITOR.
[2020-09-02 07:17] VITALS: BP 148/75
--- NOTE | 2020-09-02 08:55 | NUR ---
PT ATEMPTING TO PULL OUT IV, PT CONFUSED WANTING TO LEAVE. PT REORIENTED, IV SITE FLUSHED AND REDRESSED.
--- NOTE | 2020-09-02 09:22 | NUR ---
PT CALLED [facility], UPON ENTERING THE ROOM PT STATES "I'M READY TO LEAVE, I NEED MY CLOTHES." PT REORIENTED, SENIOR GROUP MANAGER ASKED PT IF HE COULD WAIT TO SEE THE DOCTOR. PT AGREED TO WAIT. PT ASSISTED TO THE RESTROOM PER REQUEST, GATE WEAK AND UNSTEADY, PT VOIDED AND WAS ASSISTED BACK TO BED. PT PROVIDED WITH A COMB PER REQUEST. BED ALARM ACTIVE FOR PT SAFETY. CALL DE LA GARZA WITHIN REACH. WILL CONTINUE TO MONITOR.
[2020-09-02 09:26] LABS: C-REACTIVE PROTEIN 0.6 mg/dL (0-0.9)
--- NOTE | 2020-09-02 10:30 | NUR ---
MD AT BEDSIDE DISCUSSING PLAN OF CARE
--- NOTE | 2020-09-02 10:35 | NUR ---
PT ASSISTED TO GET DRESSED PER REQUEST. PT SITTING IN CHAIR AT BEDSIDE. SAFETY PRECAUTIONS IN PLACE. WILL CONTINUE TO MONITOR.
--- NOTE | 2020-09-02 11:39 | NUR ---
PT REMOVED IV #22 LFA, IV CATHETER INTACT.
--- NOTE | 2020-09-02 12:16 | NUR ---
PT SITTING IN CHAIR AT BEDSIDE, EATING LUNCH. NO S/S OF DISTRESS AT THIS TIME. SAFETY PRECAUTIONS IN PLACE. WILL CONTINUE TO MONITOR.
--- NOTE | 2020-09-02 12:48 | NUR ---
Discharge instructions given. Patient verbalizes understanding of same. Discharged in stable condition via Wheelchair to ACLF with staff. All belongings sent with pt.
== END 2020-09-02 12:48 ==
LOC: ED 14:24 → ED-I 15:32 → ED 15:46 → MS2 15:47
PROVIDERS: Family Medicine; Nurse Practitioner; ADMIT Internal Medicine; ATTEND Internal Medicine
DX: R07.9 Chest pain, unspecified (principal); I10 Essential (primary) hypertension; E11.9 Type 2 diabetes mellitus without complications; J44.9 Chronic obstructive pulmonary disease, unspecified; I25.10 Atherosclerotic heart disease of native coronary artery without angina pectoris; E78.5 Hyperlipidemia, unspecified; F03.90 Unspecified dementia, unspecified severity, without behavioral disturbance, psychotic disturbance, mood disturbance, and anxiety; N40.0 Benign prostatic hyperplasia without lower urinary tract symptoms; I25.2 Old myocardial infarction; Z79.01 Long term (current) use of anticoagulants; Z85.51 Personal history of malignant neoplasm of bladder; Z95.1 Presence of aortocoronary bypass graft; Z87.891 Personal history of nicotine dependence; Z20.828 Contact with and (suspected) exposure to other viral communicable diseases
CPT/HCPCS: G0378; J1650

== ENCOUNTER 2020-10-10 08:02 | Inpatient (IN) | payer MEDICARE ==
[~2020-10-10] VITALS: Ht 177.8 cm; Wt 104.1 kg
[2020-10-10] MEDS ORDERED: FUROSEMIDE20 MG PO (08:28)
[2020-10-10] MEDS ORDERED: K-DUR/KLOR-CON20 MEQ PO (08:29)
[2020-10-10] MEDS ORDERED: PREDNISONE1 MG PO (08:30)
[2020-10-10 09:15] LABS: HEMATOCRIT 34.5 % (39.0-50.0); HEMOGLOBIN 10.4 g/dl (14.0-18.0); IMMATURE GRANULOCYTES 0.2 % (0.0-5.0); MEAN CELL VOLUME 94.8 fL CALC (80.0-100.0); MEAN CORPUSCULAR HGB 28.6 pG CALC (26.0-32.0); MEAN CORPUSCULAR HGB CONC 30.1 g/dL CAL (32.0-36.0); NEUT# 2.76 thou/uL (1.82-7.42); RED BLOOD COUNT 3.64 mill/uL (4.70-6.10); RED CELL DISTRI WIDTH 14.4 % (11.5-15.5)
[2020-10-10 09:29] LABS: ALKALINE PHOSPHATASE 94 u/l (38-126); ANION GAP 13 (6-22 (CALC)); BUN 22 mg/dL (8-23); BUN/CREATININE RATIO 16 (12-20 (CALC)); CARBON DIOXIDE 25 mmol/l (22-30); CHLORIDE 104 mmol/l (95-108); CREATININE 1.4 mg/dL (0.7-1.3); GFR 48 ML/MIN (>=60 (CALC)); GFR FOR AFR.AMER. 58 ML/MIN (>=60 (CALC)); POTASSIUM 4.5 mmol/l (3.5-5.1); SGOT/AST 29 u/l (19-48); SODIUM 138 mmol/l (137-146); TOTAL PROTEIN 6.8 g/dL (6.3-8.2)
[2020-10-10 09:34] LABS: BILIRUBIN, TOTAL 1.6 mg/dL (0.0-1.4)
[2020-10-10 09:45] LABS: MYOGLOBIN 42 ng/mL (0 - 121)
[2020-10-10] MEDS ORDERED: DOXYCYC MONO100 M2 PO (12:04)
[2020-10-10 13:10] VITALS: BP 138/58
[2020-10-10 15:00] VITALS: BP 116/58
[2020-10-10 17:00] VITALS: BP 144/68
[2020-10-10 20:00] VITALS: BP 144/67
[2020-10-10 22:00] VITALS: BP 173/77
[2020-10-11] VITALS (8 sets, daily range): BP systolic 92–162; BP diastolic 47–79
[2020-10-11 04:53] LABS: HEMATOCRIT 36.9 % (39.0-50.0); HEMOGLOBIN 11.2 g/dl (14.0-18.0); MEAN CELL VOLUME 92.9 fL CALC (80.0-100.0); MEAN CORPUSCULAR HGB 28.2 pG CALC (26.0-32.0); MEAN CORPUSCULAR HGB CONC 30.4 g/dL CAL (32.0-36.0); NEUT# 1.16 thou/uL (1.82-7.42); RED BLOOD COUNT 3.97 mill/uL (4.70-6.10); RED CELL DISTRI WIDTH 14.1 % (11.5-15.5)
[2020-10-11 05:10] LABS: ALKALINE PHOSPHATASE 91 u/l (38-126); ANION GAP 16 (6-22 (CALC)); BILIRUBIN, TOTAL 1.1 mg/dL (0.0-1.4); BUN 25 mg/dL (8-23); BUN/CREATININE RATIO 23 (12-20 (CALC)); C-REACTIVE PROTEIN 3.6 mg/dL (0-0.9); CARBON DIOXIDE 20 mmol/l (22-30); CHLORIDE 107 mmol/l (95-108); CREATININE 1.1 mg/dL (0.7-1.3); GFR > 60 ML/MIN (>=60 (CALC)); GFR FOR AFR.AMER. > 60 ML/MIN (>=60 (CALC)); SGOT/AST 42 u/l (19-48); SODIUM 138 mmol/l (137-146); TOTAL PROTEIN 7.1 g/dL (6.3-8.2)
[2020-10-11 05:21] LABS: POTASSIUM 5.3 mmol/l (3.5-5.1)
[2020-10-12] VITALS (9 sets, daily range): BP systolic 120–172; BP diastolic 66–91
[2020-10-12 04:15] LABS: HEMATOCRIT 40.3 % (39.0-50.0); HEMOGLOBIN 12.4 g/dl (14.0-18.0); IMMATURE GRANULOCYTES 0.3 % (0.0-5.0); MEAN CELL VOLUME 91.4 fL CALC (80.0-100.0); MEAN CORPUSCULAR HGB 28.1 pG CALC (26.0-32.0); MEAN CORPUSCULAR HGB CONC 30.8 g/dL CAL (32.0-36.0); NEUT# 4.62 thou/uL (1.82-7.42); RED BLOOD COUNT 4.41 mill/uL (4.70-6.10); RED CELL DISTRI WIDTH 13.8 % (11.5-15.5)
[2020-10-12 04:44] LABS: ALBUMIN 4.3 g/dL (3.2-5.0); ALKALINE PHOSPHATASE 99 u/l (38-126); ANION GAP 19 (6-22 (CALC)); BILIRUBIN, TOTAL 0.9 mg/dL (0.0-1.4); BUN 26 mg/dL (8-23); BUN/CREATININE RATIO 23 (12-20 (CALC)); CARBON DIOXIDE 20 mmol/l (22-30); CHLORIDE 104 mmol/l (95-108); CREATININE 1.1 mg/dL (0.7-1.3); GFR > 60 ML/MIN (>=60 (CALC)); GFR FOR AFR.AMER. > 60 ML/MIN (>=60 (CALC)); POTASSIUM 5.1 mmol/l (3.5-5.1); SGOT/AST 40 u/l (19-48); SODIUM 137 mmol/l (137-146); TOTAL PROTEIN 7.3 g/dL (6.3-8.2)
[2020-10-13] VITALS (10 sets, daily range): BP systolic 126–163; BP diastolic 58–99
[2020-10-13 06:07] LABS: HEMATOCRIT 43.3 % (39.0-50.0); HEMOGLOBIN 13.2 g/dl (14.0-18.0); IMMATURE GRANULOCYTES 0.5 % (0.0-5.0); MEAN CELL VOLUME 92.1 fL CALC (80.0-100.0); MEAN CORPUSCULAR HGB 28.1 pG CALC (26.0-32.0); MEAN CORPUSCULAR HGB CONC 30.5 g/dL CAL (32.0-36.0); NEUT# 3.96 thou/uL (1.82-7.42); RED BLOOD COUNT 4.7 mill/uL (4.70-6.10); RED CELL DISTRI WIDTH 13.7 % (11.5-15.5)
[2020-10-13 06:30] LABS: ALBUMIN 4.3 g/dL (3.2-5.0); ALKALINE PHOSPHATASE 100 u/l (38-126); ANION GAP 19 (6-22 (CALC)); BUN 30 mg/dL (8-23); BUN/CREATININE RATIO 26 (12-20 (CALC)); CARBON DIOXIDE 23 mmol/l (22-30); CHLORIDE 103 mmol/l (95-108); CREATININE 1.2 mg/dL (0.7-1.3); GFR 57 ML/MIN (>=60 (CALC)); GFR FOR AFR.AMER. > 60 ML/MIN (>=60 (CALC)); POTASSIUM 4.8 mmol/l (3.5-5.1); SGOT/AST 44 u/l (19-48); SODIUM 139 mmol/l (137-146); TOTAL PROTEIN 7.5 g/dL (6.3-8.2)
[2020-10-14] VITALS (13 sets, daily range): BP systolic 106–157; BP diastolic 67–96
[2020-10-14 08:10] LABS: HEMATOCRIT 43.1 % (39.0-50.0); HEMOGLOBIN 13.3 g/dl (14.0-18.0); IMMATURE GRANULOCYTES 0.5 % (0.0-5.0); MEAN CELL VOLUME 91.7 fL CALC (80.0-100.0); MEAN CORPUSCULAR HGB 28.3 pG CALC (26.0-32.0); MEAN CORPUSCULAR HGB CONC 30.9 g/dL CAL (32.0-36.0); NEUT# 2.67 thou/uL (1.82-7.42); RED BLOOD COUNT 4.7 mill/uL (4.70-6.10); RED CELL DISTRI WIDTH 13.6 % (11.5-15.5)
[2020-10-14 08:26] LABS: ANION GAP 14 (6-22 (CALC)); BUN 35 mg/dL (8-23); BUN/CREATININE RATIO 32 (12-20 (CALC)); C-REACTIVE PROTEIN 7.2 mg/dL (0-0.9); CARBON DIOXIDE 26 mmol/l (22-30); CHLORIDE 105 mmol/l (95-108); CREATININE 1.1 mg/dL (0.7-1.3); GFR > 60 ML/MIN (>=60 (CALC)); GFR FOR AFR.AMER. > 60 ML/MIN (>=60 (CALC)); POTASSIUM 4.7 mmol/l (3.5-5.1); SODIUM 141 mmol/l (137-146)
[2020-10-15] VITALS: BP 158/86
[2020-10-15 02:00] VITALS: BP 108/85
[2020-10-15 04:00] VITALS: BP 109/71
[2020-10-15 07:35] VITALS: BP 161/99
[2020-10-15 16:05] VITALS: BP 140/88
[2020-10-16] VITALS (10 sets, daily range): BP systolic 111–179; BP diastolic 52–105
[2020-10-16 14:54] LABS: HEMATOCRIT 46.9 % (39.0-50.0); HEMOGLOBIN 14.5 g/dl (14.0-18.0); IMMATURE GRANULOCYTES 0.4 % (0.0-5.0); MEAN CELL VOLUME 90.4 fL CALC (80.0-100.0); MEAN CORPUSCULAR HGB 27.9 pG CALC (26.0-32.0); MEAN CORPUSCULAR HGB CONC 30.9 g/dL CAL (32.0-36.0); NEUT# 5.58 thou/uL (1.82-7.42); RED BLOOD COUNT 5.19 mill/uL (4.70-6.10); RED CELL DISTRI WIDTH 13.4 % (11.5-15.5)
[2020-10-16 15:14] LABS: ALBUMIN 4.7 g/dL (3.2-5.0); ALKALINE PHOSPHATASE 111 u/l (38-126); ANION GAP 18 (6-22 (CALC)); BILIRUBIN, TOTAL 0.8 mg/dL (0.0-1.4); BUN 45 mg/dL (8-23); BUN/CREATININE RATIO 36 (12-20 (CALC)); C-REACTIVE PROTEIN 3.1 mg/dL (0-0.9); CARBON DIOXIDE 27 mmol/l (22-30); CHLORIDE 111 mmol/l (95-108); CREATININE 1.2 mg/dL (0.7-1.3); GFR 57 ML/MIN (>=60 (CALC)); GFR FOR AFR.AMER. > 60 ML/MIN (>=60 (CALC)); SGOT/AST 42 u/l (19-48); TOTAL PROTEIN 8.3 g/dL (6.3-8.2)
[2020-10-16 15:44] LABS: SODIUM 151 mmol/l (137-146)
[2020-10-17] VITALS (16 sets, daily range): BP systolic 105–206; BP diastolic 67–109
[2020-10-17 06:05] LABS: ALBUMIN 4.4 g/dL (3.2-5.0); ALKALINE PHOSPHATASE 106 u/l (38-126); BILIRUBIN, TOTAL 0.8 mg/dL (0.0-1.4); BUN 41 mg/dL (8-23); BUN/CREATININE RATIO 38 (12-20 (CALC)); CARBON DIOXIDE 23 mmol/l (22-30); CHLORIDE 117 mmol/l (95-108); CREATININE 1.1 mg/dL (0.7-1.3); GFR > 60 ML/MIN (>=60 (CALC)); GFR FOR AFR.AMER. > 60 ML/MIN (>=60 (CALC)); SGOT/AST 42 u/l (19-48); SODIUM 153 mmol/l (137-146); TOTAL PROTEIN 7.7 g/dL (6.3-8.2)
[2020-10-17 06:22] LABS: ANION GAP 18 (6-22 (CALC)); POTASSIUM 5.3 mmol/l (3.5-5.1)
[2020-10-18] VITALS (24 sets, daily range): BP systolic 74–177; BP diastolic 0–103
[2020-10-18 09:21] LABS: HEMATOCRIT 51.5 % (39.0-50.0); HEMOGLOBIN 15.4 g/dl (14.0-18.0); IMMATURE GRANULOCYTES 0.6 % (0.0-5.0); MEAN CELL VOLUME 94.5 fL CALC (80.0-100.0); MEAN CORPUSCULAR HGB 28.3 pG CALC (26.0-32.0); MEAN CORPUSCULAR HGB CONC 29.9 g/dL CAL (32.0-36.0); NEUT# 11.42 thou/uL (1.82-7.42); RED BLOOD COUNT 5.45 mill/uL (4.70-6.10); RED CELL DISTRI WIDTH 13.7 % (11.5-15.5)
[2020-10-18 10:07] LABS: BILIRUBIN, TOTAL 0.7 mg/dL (0.0-1.4); TOTAL PROTEIN 7.3 g/dL (6.3-8.2)
[2020-10-18 10:08] LABS: CREATININE 2.2 mg/dL (0.7-1.3); POTASSIUM 5.9 mmol/l (3.5-5.1)
[2020-10-18 13:20] LABS: URINE BILIRUBIN - DIPSTICK NEGATIVE (NEGATIVE); URINE BLOOD DIPSTICK LARGE (NEGATIVE); URINE COLOR YELLOW; URINE GLUCOSE - DIPSTICK 250 mg/dL (NEGATIVE); URINE KETONE TRACE mg/dL (NEGATIVE); URINE LEUK ESTERASE LARGE (Negative); URINE NITRITE - DIPSTICK NEGATIVE (Negative); URINE PROTEIN - DIPSTICK 100 mg/dL (NEG-TRACE); URINE SPECIFIC GRAVITY 1.025; URINE UROBILINOGEN - DIPSTICK 0.2 E.U./dL (0.2)
[2020-10-18 13:28] LABS: URINE CLARITY TURBID
[2020-10-18 13:29] LABS: URINE BACTERIA FEW hpf; URINE RBC TNTC RBC/hpf (0-5); URINE WBC TNTC WBC/hpf (0-5)
[2020-10-19] VITALS (17 sets, daily range): BP systolic 100–153; BP diastolic 0–81
[2020-10-19 08:30] LABS: IMMATURE GRANULOCYTES 0.5 % (0.0-5.0); MEAN CELL VOLUME 95.9 fL CALC (80.0-100.0); MEAN CORPUSCULAR HGB CONC 29.3 g/dL CAL (32.0-36.0); PLATELET COUNT 260 thou/uL (130-400); RED BLOOD COUNT 4.35 mill/uL (4.70-6.10); RED CELL DISTRI WIDTH 13.9 % (11.5-15.5)
[2020-10-19 08:51] LABS: ALKALINE PHOSPHATASE 74 u/l (38-126); ANION GAP 17 (6-22 (CALC)); BILIRUBIN, TOTAL 0.5 mg/dL (0.0-1.4); BUN 65 mg/dL (8-23); BUN/CREATININE RATIO 26 (12-20 (CALC)); CARBON DIOXIDE 17 mmol/l (22-30); CHLORIDE 120 mmol/l (95-108); CREATININE 2.5 mg/dL (0.7-1.3); GFR 24 ML/MIN (>=60 (CALC)); GFR FOR AFR.AMER. 30 ML/MIN (>=60 (CALC)); HEMATOCRIT 41.7 % (39.0-50.0); HEMOGLOBIN 12.2 g/dl (14.0-18.0); MANUAL DIFFERENTIAL YES; POTASSIUM 5.1 mmol/l (3.5-5.1); SGOT/AST 22 u/l (19-48); SODIUM 149 mmol/l (137-146)
[2020-10-19 08:56] LABS: BAND 49 % (0-8)
[2020-10-19 08:57] LABS: DOHLE BODIES FEW; PLATELET ESTIMATE NORMAL
[2020-10-19 09:09] LABS: ALBUMIN 2.5 g/dL (3.2-5.0); TOTAL PROTEIN 5.1 g/dL (6.3-8.2)
[2020-10-19 09:10] LABS: C-REACTIVE PROTEIN > 27.0 mg/dL (0-0.9)
[2020-10-20] VITALS (14 sets, daily range): BP systolic 100–160; BP diastolic 49–73
[2020-10-20 05:49] LABS: IMMATURE GRANULOCYTES 1.1 % (0.0-5.0); MEAN CELL VOLUME 94.1 fL CALC (80.0-100.0); MEAN CORPUSCULAR HGB CONC 29.7 g/dL CAL (32.0-36.0); NEUT# 10.87 thou/uL (1.82-7.42); RED BLOOD COUNT 3.54 mill/uL (4.70-6.10); RED CELL DISTRI WIDTH 14.2 % (11.5-15.5)
[2020-10-20 06:19] LABS: ALKALINE PHOSPHATASE 59 u/l (38-126); BILIRUBIN, TOTAL 0.4 mg/dL (0.0-1.4); BUN 58 mg/dL (8-23); BUN/CREATININE RATIO 31 (12-20 (CALC)); CHLORIDE 125 mmol/l (95-108); CREATININE 1.9 mg/dL (0.7-1.3); GFR 34 ML/MIN (>=60 (CALC)); GFR FOR AFR.AMER. 41 ML/MIN (>=60 (CALC)); POTASSIUM 4.5 mmol/l (3.5-5.1); SGOT/AST 18 u/l (19-48); SODIUM 154 mmol/l (137-146); TOTAL PROTEIN 4.2 g/dL (6.3-8.2)
[2020-10-20 06:36] LABS: ANION GAP 10 (6-22 (CALC)); CARBON DIOXIDE 24 mmol/l (22-30)
[2020-10-20 06:37] LABS: C-REACTIVE PROTEIN > 27.0 mg/dL (0-0.9)
[2020-10-20 06:39] LABS: HEMATOCRIT 33.3 % (39.0-50.0); HEMOGLOBIN 9.9 g/dl (14.0-18.0)
[2020-10-21] VITALS (18 sets, daily range): BP systolic 94–136; BP diastolic 00–80
[2020-10-21 06:29] LABS: BASO% 0 % (0-3); EOS% 0 % (0-8); HEMATOCRIT 32.1 % (39.0-50.0); HEMOGLOBIN 9.6 g/dl (14.0-18.0); IMMATURE GRANULOCYTES 0.7 % (0.0-5.0); LYMPH% 3 % (15-41); MEAN CELL VOLUME 93.6 fL CALC (80.0-100.0); MEAN CORPUSCULAR HGB CONC 29.9 g/dL CAL (32.0-36.0); MONO% 3 % (2-13); NEUT# 10.06 thou/uL (1.82-7.42); NEUT% 93 % (42-76); PLATELET COUNT 109 thou/uL (130-400); RED BLOOD COUNT 3.43 mill/uL (4.70-6.10); RED CELL DISTRI WIDTH 14.6 % (11.5-15.5)
[2020-10-21 06:42] LABS: ALBUMIN 1.9 g/dL (3.2-5.0); BILIRUBIN, TOTAL 0.4 mg/dL (0.0-1.4); CREATININE 1.6 mg/dL (0.7-1.3); POTASSIUM 3.9 mmol/l (3.5-5.1); TOTAL PROTEIN 4.2 g/dL (6.3-8.2)
[2020-10-21 07:10] LABS: C-REACTIVE PROTEIN 23.4 mg/dL (0-0.9)
[2020-10-22] VITALS (19 sets, daily range): BP systolic 110–148; BP diastolic 00–74
[2020-10-22 04:53] LABS: HEMATOCRIT 32.7 % (39.0-50.0); HEMOGLOBIN 9.9 g/dl (14.0-18.0); MEAN CELL VOLUME 92.6 fL CALC (80.0-100.0); MEAN CORPUSCULAR HGB CONC 30.3 g/dL CAL (32.0-36.0); RED BLOOD COUNT 3.53 mill/uL (4.70-6.10); RED CELL DISTRI WIDTH 14.8 % (11.5-15.5)
[2020-10-22 05:24] LABS: ALKALINE PHOSPHATASE 72 u/l (38-126); ANION GAP 9 (6-22 (CALC)); BILIRUBIN, TOTAL 0.4 mg/dL (0.0-1.4); BUN 56 mg/dL (8-23); BUN/CREATININE RATIO 42 (12-20 (CALC)); CARBON DIOXIDE 23 mmol/l (22-30); CHLORIDE 125 mmol/l (95-108); CREATININE 1.3 mg/dL (0.7-1.3); GFR 52 ML/MIN (>=60 (CALC)); GFR FOR AFR.AMER. > 60 ML/MIN (>=60 (CALC)); POTASSIUM 3.8 mmol/l (3.5-5.1); SODIUM 153 mmol/l (137-146); TOTAL PROTEIN 4.4 g/dL (6.3-8.2)
[2020-10-22 05:32] LABS: SGOT/AST 43 u/l (19-48)
[2020-10-23] VITALS (10 sets, daily range): BP systolic 100–120; BP diastolic 00
[2020-10-23 05:53] LABS: HEMATOCRIT 35.2 % (39.0-50.0); IMMATURE GRANULOCYTES 1.9 % (0.0-5.0); MEAN CELL VOLUME 91.9 fL CALC (80.0-100.0); MEAN CORPUSCULAR HGB 28.7 pG CALC (26.0-32.0); MEAN CORPUSCULAR HGB CONC 31.3 g/dL CAL (32.0-36.0); NEUT# 10.3 thou/uL (1.82-7.42); RED BLOOD COUNT 3.83 mill/uL (4.70-6.10); RED CELL DISTRI WIDTH 14.8 % (11.5-15.5)
[2020-10-23 06:38] LABS: ALBUMIN 2.2 g/dL (3.2-5.0); ALKALINE PHOSPHATASE 72 u/l (38-126); ANION GAP 10 (6-22 (CALC)); BILIRUBIN, TOTAL 0.5 mg/dL (0.0-1.4); BUN 63 mg/dL (8-23); BUN/CREATININE RATIO 46 (12-20 (CALC)); CARBON DIOXIDE 24 mmol/l (22-30); CHLORIDE 120 mmol/l (95-108); CREATININE 1.4 mg/dL (0.7-1.3); GFR 48 ML/MIN (>=60 (CALC)); GFR FOR AFR.AMER. 58 ML/MIN (>=60 (CALC)); POTASSIUM 3.4 mmol/l (3.5-5.1); SGOT/AST 44 u/l (19-48); SODIUM 150 mmol/l (137-146); TOTAL PROTEIN 4.8 g/dL (6.3-8.2)
[2020-10-23 06:45] LABS: C-REACTIVE PROTEIN > 9.0 mg/dL (0-0.9)
== END 2020-10-23 12:10 | disposition expired | DRG 207 ==
LOC: ED 08:02 → ED-I 12:05 → ED 12:19 → ICU 12:20
PROVIDERS: Family Medicine; Nurse Practitioner; ADMIT Internal Medicine; ATTEND Internal Medicine
PROC: XW033E5 Introduction of Remdesivir Anti-infective into Peripheral Vein, Percutaneous Approach, New Technology Group 5 (ICD-10-PCS; 2020-10-12)
PROC: 5A1955Z Respiratory Ventilation, Greater than 96 Consecutive Hours (ICD-10-PCS; principal; 2020-10-18)
PROC: 0BH17EZ Insertion of Endotracheal Airway into Trachea, Via Natural or Artificial Opening (ICD-10-PCS; 2020-10-18)
PROC: 02HV33Z Insertion of Infusion Device into Superior Vena Cava, Percutaneous Approach (ICD-10-PCS; 2020-10-18)
PROC: 0B21XEZ Change Endotracheal Airway in Trachea, External Approach (ICD-10-PCS; 2020-10-21)
DX: U07.1 COVID-19 (principal); J12.89 Other viral pneumonia; I21.4 Non-ST elevation (NSTEMI) myocardial infarction; A41.89 Other specified sepsis; J96.01 Acute respiratory failure with hypoxia; N17.9 Acute kidney failure, unspecified; F03.91 Unspecified dementia, unspecified severity, with behavioral disturbance; E87.0 Hyperosmolality and hypernatremia; Z66 Do not resuscitate; E87.5 Hyperkalemia; I11.0 Hypertensive heart disease with heart failure; I50.9 Heart failure, unspecified; E11.65 Type 2 diabetes mellitus with hyperglycemia; R23.0 Cyanosis; I25.119 Atherosclerotic heart disease of native coronary artery with unspecified angina pectoris; J44.9 Chronic obstructive pulmonary disease, unspecified; E78.5 Hyperlipidemia, unspecified; N40.0 Benign prostatic hyperplasia without lower urinary tract symptoms; Z78.1 Physical restraint status; Z79.899 Other long term (current) drug therapy; Z87.891 Personal history of nicotine dependence; Z95.1 Presence of aortocoronary bypass graft; Z85.51 Personal history of malignant neoplasm of bladder
CPT/HCPCS: J0692; J1100; J1650; J2060; Q9967; S0164